=== PATIENT | female | born 1970 | race Caucasian/White ===

== ENCOUNTER → 2016-04-15 | Outpatient (CLI) | payer BC ==
--- OUTSIDE RECORDS SUMMARY | 2016-04-15 15:32 | XMS REPORT | Continuity of Care Document ---
Author Author [facility] Organization [facility] Address Unknown Phone Unavailable Allergies Active Description Code Type Severity Reaction Onset Reported/Identified Relationship to Patient Clinical Status Yes NKANo Known Allergies NKA Miscellaneous Allergy Unknown N/ A 08/09/2005 Medications Problems Date Dx Coded Attending Type Code Diagnosis Diagnosed By 02/27/2015 Ot V76.12 02/27/2015 FRAN OLIVAP Ot V76.12 02/27/2015 FRAN OLIVAP Ot V76.12 03/12/2015 FRAN OLIVAP Ot Z12.31 11/20/2015 Ot V76.12 OTH SCREEN MAMMO-MALIGN NEOPLASM OF YUMIKO 11/20/2015 FRAN OLIVA HOOKER ON Ot V76.12 OTH SCREEN MAMMO-MALIGN NEOPLASM OF YUMIKO 11/20/2015 FRAN OLIVA HOOKER ON Ot V76.12 OTH SCREEN MAMMO-MALIGN NEOPLASM OF YUMIKO 11/20/2015 FRAN OLIVA Ot Z12.31 ENCNTR SCREEN MAMMOGRAM FOR MALIGNANT NE 11/21/2015 Ot V76.12 OTH SCREEN MAMMO-MALIGN NEOPLASM OF YUMIKO 11/21/2015 FRAN OLIVA HOOKER ON Ot V76.12 OTH SCREEN MAMMO-MALIGN NEOPLASM OF YUMIKO 11/21/2015 FRAN OLIVA HOOKER ON Ot V76.12 OTH SCREEN MAMMO-MALIGN NEOPLASM OF YUMIKO 11/21/2015 FRAN OLIVA HOOKER ON Ot Z12.31 ENCNTR SCREEN MAMMOGRAM FOR MALIGNANT NE 12/29/2015 Ot V76.12 OTH SCREEN MAMMO-MALIGN NEOPLASM OF YUMIKO 12/29/2015 FRAN OLIVA HOOKER ON Ot V76.12 OTH SCREEN MAMMO-MALIGN NEOPLASM OF YUMIKO 12/29/2015 FRAN OLIVA HOOKER ON Ot V76.12 OTH SCREEN MAMMO-MALIGN NEOPLASM OF YUMIKO 12/29/2015 FRAN OLIVA Ot Z12.31 ENCNTR SCREEN MAMMOGRAM FOR MALIGNANT NE Procedures Results Encounters ACCT No. Visit Date/Time Discharge Status Pt. Type Provider Facility Loc./Unit Complaint [id number] 12/03/2013 13:56:00 2013 23:59:59 CLS Outpatient FRAN OLIVA [facility] RAD SCREENING [id number] 11/03/2012 15:14:00 2012 23:59:59 CLS Outpatient FRAN OLIVA [facility] RAD SCREENING [id number] 07/04/2015 17:17:00 Document Registration [id number] 02/27/2015 15:34:00 ACT Outpatient FRAN OLIVA [facility] RAD ROUTINE MAMMO SCREENING [id number] 02/27/2015 15:33:00 Document Registration [id number] 08/05/2011 14:28:00 Document Registration
--- NOTE | 2016-04-15 19:56 | Diagnostic Imaging Report ---
Digital mammogram bilateral screening. This study was compared to the prior exams of 02/27/2015, 12/03/2013, and 11/03/2012. At this time, there are no current complaints. The current study was also evaluated with a Computer Aided Detection (CAD) system. FINDINGS: The fibroglandular tissue in both breasts is heterogeneously dense. This does limit the sensitivity of this exam. Overall, there does not appear to have been any significant change when compared to the prior study. No primary or secondary sign of malignancy is noted. The stereotactic clips in both breasts seen previously are again evident and no different. IMPRESSION: There is no radiographic evidence for malignancy. ACR BI-RADS Category 1: Negative. Result letter will be mailed to the patient. Note: At least 10% of breast cancer is not imaged by mammography. Dictated by: Dictated on workstation # [id number]
== END ==
LOC: RAD 15:29
PROVIDERS: ATTEND Family Medicine
DX: Z12.31 Encounter for screening mammogram for malignant neoplasm of breast (principal)
CPT/HCPCS: 77067

== ENCOUNTER → 2017-06-16 | Outpatient (CLI) | payer BC ==
--- NOTE | 2017-06-16 19:30 | Diagnostic Imaging Report ---
INDICATION: Routine screening. COMPARISON: Comparison is made with prior study of 04/15/2016 and 02/27/2015. TECHNIQUE: Bilateral 3D digital tomographic views were obtained with [employer] and reviewed on a [employer] workstation. In addition, CAD - computer aided detection was utilized. FINDINGS: There is an irregular density in the superior left breast posterior depth only seen on the MLO view. Additional imaging is recommended. There are benign calcifications bilaterally. There is a biopsy clip in the left breast. The axillae are unremarkable. IMPRESSION: Left breast density. Additional views including spot compression and ML views are recommended for further evaluation. ACR BI-RADS Category 0: Incomplete. (Needs additional imaging evaluation). Result letter will be mailed to the patient. Note: At least 10% of breast cancer is not imaged by mammography. Dictated by: Dictated on workstation # [id number]
== END ==
LOC: RAD 14:29
PROVIDERS: ATTEND Family Medicine
DX: Z12.31 Encounter for screening mammogram for malignant neoplasm of breast (principal)
CPT/HCPCS: 77067

== ENCOUNTER → 2017-06-27 | Outpatient (CLI) | payer BC ==
--- NOTE | 2017-06-27 12:42 | Diagnostic Imaging Report ---
PROCEDURE: US Gallbladder. TECHNIQUE: Multiple real-time grayscale images were obtained over the right upper quadrant in various projections. INDICATION: Abdominal pain. COMPARISON: There are no prior studies available for comparison. FINDINGS: The liver is prominent and more echogenic than usually seen. This does suggest fatty metamorphosis. There is no focal mass involving the liver and the biliary tree is not abnormally dilated. Spectral color flow imaging of the portal vein shows that the vein is patent and normal and that there is normal directional flow within the vein. There is no evidence for cholelithiasis or acute cholecystitis. The common bile duct was not well visualized however. The pancreas is also obscured by bowel gas. The right kidney is unremarkable. IMPRESSION: 1. There is no acute abnormality of the right upper quadrant although the pancreas, and common bile duct were not well visualized. 2. If clinical concern regarding an acute abnormality of the gallbladder persists, then a nuclear medicine hepatobiliary scan would be recommended for further study. 3. The appearance of the liver does suggest fatty metamorphosis. Dictated by: Dictated on workstation # [id number]
== END ==
LOC: RAD 07:03
PROVIDERS: ATTEND Family Medicine
DX: R10.11 Right upper quadrant pain (principal)
CPT/HCPCS: 76705

== ENCOUNTER → 2017-06-30 | Outpatient (CLI) | payer BC ==
--- NOTE | 2017-06-30 11:10 | Diagnostic Imaging Report ---
EXAM: Ultrasound of the left breast, limited. INDICATION: Abnormal mammogram FINDINGS: The screening mammogram performed on 06/16/2017 noted an irregular density in the superior aspect of the left breast posteriorly. This is only seen on the MLO view. The diagnostic mammogram performed earlier today failed to show any sign of malignancy. On this exam, there is no discrete solid or cystic mass evident. I suspect that the area in question is related to fibroglandular tissue alone. Even so, it may prove worthwhile to have a short-term (6 month) followup mammogram of the left breast for continued evaluation. IMPRESSION: There is no evidence for malignancy. Recommendations as above. ACR BI-RADS Category 3: Probably benign findings. Result letter will be mailed to the patient. Note: At least 10% of breast cancer is not imaged by mammography. Dictated by: Dictated on workstation # [id number]
--- NOTE | 2017-06-30 19:38 | Diagnostic Imaging Report ---
EXAMINATION: Diagnostic left mammogram with 3D tomosynthesis. 3D tomographic images were obtained and reviewed. The current study was also evaluated with a Computer Aided Detection (CAD) system. FINDINGS: The screening mammogram performed on 06/16/2017 noted an irregular density in the superior left breast at posterior depth. This finding was only seen on the MLO view. This finding does not seem as conspicuous on the compression view of this area in the MLO view. Furthermore, this density cannot be identified on the true lateral view. I suspect this finding is secondary to superimposition. Even so, I would recommend that ultrasound of the left breast be performed for further evaluation. IMPRESSION: There is no evidence for malignancy. Ultrasound would be recommend for further study. ACR BI-RADS Category 0: Incomplete. (Needs additional imaging evaluation). Result letter will be mailed to the patient. Note: At least 10% of breast cancer is not imaged by mammography. Dictated by: Dictated on workstation # [id number]
== END ==
LOC: RAD 09:17
PROVIDERS: ATTEND Family Medicine
DX: R92.8 Other abnormal and inconclusive findings on diagnostic imaging of breast (principal)
CPT/HCPCS: 76642

== ENCOUNTER → 2018-01-20 | Outpatient (CLI) | payer BC ==
--- NOTE | 2018-01-20 15:59 | Diagnostic Imaging Report ---
INDICATION: Breast density. Patient presents for a 6 month followup. COMPARISON: Prior mammograms from 06/16/2017 and 04/15/2016. TECHNIQUE: Unilateral left 2D and 3D diagnostic mammography was performed with CAD. FINDINGS: Scattered fibroglandular densities are noted in the left breast. A biopsy clip remains in place. The area of slightly irregular density in the superior left breast at posterior depth on the MLO view appears stable. No new abnormality is seen. There are scattered benign calcifications. No malignant appearing microcalcifications are seen. The left axilla is unremarkable. IMPRESSION: Stable left mammogram. The patient should return in 6 months for an additional followup to confirm stability. ACR BI-RADS Category 3: Probably benign findings. Result letter will be mailed to the patient. Note: At least 10% of breast cancer is not imaged by mammography. Dictated by: Dictated on workstation # [id number]
== END ==
LOC: RAD 13:21
PROVIDERS: ATTEND Family Medicine
DX: R92.2 Inconclusive mammogram (principal)

== ENCOUNTER → 2018-08-28 | Outpatient (CLI) | payer BC ==
--- NOTE | 2018-08-28 21:11 | Diagnostic Imaging Report ---
INDICATION: Six-month followup left breast density. Comparison is made with prior mammogram from 01/20/2018, 06/30/2017. 2-D and 3-D bilateral diagnostic mammography was performed with a Computer Aided Detection (CAD) system. FINDINGS: Scattered fibroglandular densities are identified bilaterally. There are benign calcifications bilaterally. Biopsy clip in the right breast is again seen. The area of density in the upper posterior left breast noted on prior mammograms not visualized today most likely represent superimposed tissue. No mass or malignant microcalcifications are seen. Axillae are unremarkable. IMPRESSION: No mammographic features suspicious for malignancy are identified. Patient may return to routine annual screening mammography. ACR BI-RADS Category 2: Benign findings. Result letter will be mailed to the patient. Note: At least 10% of breast cancer is not imaged by mammography. Dictated by: Dictated on workstation # [id number]
== END ==
LOC: RAD 14:03
PROVIDERS: ATTEND Family Medicine
DX: R92.2 Inconclusive mammogram (principal)
CPT/HCPCS: 77066

== ENCOUNTER → 2019-09-10 | Outpatient (CLI) | payer BC ==
--- NOTE | 2019-09-11 12:46 | Diagnostic Imaging Report ---
INDICATION: Routine screening. Comparison is made with prior mammograms of 09/17/18 and 06/16/2017. 2-D and 3-D bilateral screening mammography was performed with CAD. Scattered fibroglandular densities are identified bilaterally. There are benign calcifications in both breasts. Biopsy clips in both breasts are noted. A nodular density has developed in the retroareolar left breast. This is a slightly superior on the MLO view. This is fairly well-circumscribed may represent a cyst. Ultrasound is recommended for further evaluation. No other mass or malignant appearing microcalcifications are seen. Axillae are unremarkable. IMPRESSION: BI-RADS 0 Left breast density. Additional views and ultrasound are recommended. ACR BI-RADS Category 0: Incomplete. (Needs additional imaging evaluation). Result letter will be mailed to the patient. Note: At least 10% of breast cancer is not imaged by mammography. Dictated by: Dictated on workstation # [id number]
== END ==
LOC: RAD 15:48
PROVIDERS: ATTEND Family Medicine
DX: Z12.31 Encounter for screening mammogram for malignant neoplasm of breast (principal)
CPT/HCPCS: 77063; 77067

== ENCOUNTER → 2019-09-27 | Outpatient (CLI) | payer BC ==
--- NOTE | 2019-09-27 14:11 | Diagnostic Imaging Report ---
INDICATION: Left breast density. Patient presents for additional views. Correlation is made with recent screening study from 09/10/2019 as well as 08/28/2018 and 01/20/2018. Unilateral left 2-D and 3-D diagnostic mammography was performed. This includes spot compression CC and ML views as well as a 90 degree lateral view. BB was placed area of palpable abnormality in the upper outer left breast. A circumscribed nodule in the upper retroareolar left breast is again noted approximately 12:00 location. There are benign calcifications present. No abnormality at the area of palpable abnormality is seen. Left axilla is unremarkable. IMPRESSION: BI-RADS 0 Circumscribed nodule upper retroareolar left breast, likely a cyst. Further evaluation of this area with ultrasound is recommended. In addition, ultrasound evaluation of the area of palpable abnormality upper outer left breast is recommended and will be performed today. ACR BI-RADS Category 0: Incomplete. (Needs additional imaging evaluation). Result letter will be mailed to the patient. Note: At least 10% of breast cancer is not imaged by mammography. Dictated by: Dictated on workstation # [id number]
--- NOTE | 2019-09-27 15:29 | Diagnostic Imaging Report ---
INDICATION: Left breast density. CORRELATION is made with diagnostic mammogram from earlier same day and screening mammogram from 09/10/2019 as well as mammogram from 08/28/2018. Sonographic interrogation of the upper left breast as well as the area of palpable abnormality was performed. Palpable abnormality corresponds to a circumscribed slightly lobulated solid nodule at the 12:30 location of the left breast, 2 cm from the nipple. This measures 9 mm x 4 mm x 5 mm. This does show some internal vascularity. There is posterior acoustic enhancement. This may represent a fibroadenoma. This was not definitely present on prior mammograms however. No other abnormalities are seen. IMPRESSION: BI-RADS Category 4 Circumscribed nodule at the 12:30 location left breast, 2 cm from the nipple accounting for the mammographic and palpable abnormality. This has fairly benign features and may represent a fibroadenoma; however, this was not present on prior mammograms. Therefore, tissue sampling is recommended. This would be amenable to ultrasound-guided core biopsy. Dictated by: Dictated on workstation # [id number]
== END ==
LOC: RAD 12:37
PROVIDERS: ATTEND Family Medicine
DX: N63.21 Unspecified lump in the left breast, upper outer quadrant (principal)
CPT/HCPCS: 76642; 77065; G0279

== ENCOUNTER → 2019-10-19 | Outpatient (CLI) | payer BC ==
[~2019-10-19] VITALS: Ht 167.7 cm; Wt 76.4 kg
[~2019-10-19] MED LIST: LIDOCAINE 1% INJ 20 ML 20 ML VIAL INJ ONE
--- NOTE | 2019-10-19 16:12 | Diagnostic Imaging Report ---
INDICATION: Left breast nodule, status post ultrasound-guided biopsy. EXAMINATION: Unilateral left 2D, CC and ML mammography was performed post ultrasound-guided biopsy. FINDINGS: A marker clip is identified in the upper anterior left breast, status post biopsy. There is some increased density at the biopsy site consistent with hematoma. IMPRESSION: Marker clip identified in left breast, as described. Dictated on workstation # [id number]
--- NOTE | 2019-10-19 16:32 | Diagnostic Imaging Report ---
INDICATION: Left breast nodule. Patient presents for ultrasound-guided biopsy. PROCEDURE: Patient was brought to the sonographic suite and placed on table in the supine position. Ultrasound imaging of the left breast was performed to evaluate appropriate entry site. Left breast was then prepped and draped in the usual sterile fashion. A small amount of 1% lidocaine was utilized for local anesthesia. Multiple core biopsies of the circumscribed hypoechoic solid nodule 12:30 location in the left breast, 2 cm from the nipple was obtained using a 13-gauge hand held vacuum assisted mammotome device. The marker clip was then deployed. Hemostasis was obtained using manual compression. The patient tolerated the procedure well and was sent for post procedure mammogram in satisfactory condition. IMPRESSION: Successful ultrasound-guided core biopsy of the circumscribed solid nodule 12:30 location in the left breast, 2 cm from the nipple, utilizing the hand held, vacuum assisted mammotome device. Pathology results are currently pending. Dictated on workstation # [id number]
== END ==
LOC: RAD 12:17
PROVIDERS: ATTEND Family Medicine
DX: N63.21 Unspecified lump in the left breast, upper outer quadrant (principal); Z98.890 Other specified postprocedural states
CPT/HCPCS: 19083; 77065; A4648; G0279

== ENCOUNTER → 2020-08-15 | Outpatient (CLI) | payer BC ==
--- NOTE | 2020-08-15 19:10 | Diagnostic Imaging Report ---
Ribs with chest at 6:12. Indication: Injury, right-sided chest pain. A single PA view of the chest and 3 views of the right ribs were obtained. There are no prior studies available for comparison. Reportedly the patient suffered an injury to the lower thorax on the right. A marker was placed over the area of concern. The images of the ribs in this region show no evidence for displaced fracture. No other acute bony abnormalities appreciated. There is no sign of an injury to the right lung and the left lung seems clear and well aerated. The heart size is within normal limits. The mediastinum is not widened. Impression: 1. There is no evidence for an acute cardiopulmonary abnormality. 2. There is no sign of a displaced rib fracture on the right either. Dictated by: Dictated on workstation # [id number]
== END ==
LOC: RAD 17:52
PROVIDERS: ATTEND Nurse Practitioner Family
DX: S20.211A Contusion of right front wall of thorax, initial encounter (principal)
CPT/HCPCS: 71101

== ENCOUNTER → 2020-11-18 | Outpatient (CLI) | payer BC ==
--- NOTE | 2020-11-18 13:27 | Diagnostic Imaging Report ---
INDICATION: Routine screening. COMPARISON: 09/10/2019 and 08/28/2018. TECHNIQUE: 2D and 3D bilateral screening mammography was performed with CAD. FINDINGS: Scattered fibroglandular densities are identified bilaterally. A marker clip in the right breast is again noted. There are benign calcifications bilaterally. There are two marker clips in the left breast. No new mass or malignant appearing microcalcifications are seen. The axillae are unremarkable. IMPRESSION: No mammographic features suspicious for malignancy are identified. ACR BI-RADS Category 2: Benign findings. Result letter will be mailed to the patient. Note: At least 10% of breast cancer is not imaged by mammography. Dictated by: Dictated on workstation # [id number]
== END ==
LOC: RAD 10:51
PROVIDERS: ATTEND Family Medicine
DX: Z12.31 Encounter for screening mammogram for malignant neoplasm of breast (principal)
CPT/HCPCS: 77063; 77067

== ENCOUNTER → 2021-12-14 | Outpatient (CLI) | payer BC ==
--- NOTE | 2021-12-14 09:09 | Diagnostic Imaging Report ---
PROCEDURE: US Hepatic (Liver). INDICATION: Liver density. TECHNIQUE: Multiple grayscale sonographic images were obtained of the right upper quadrant of the abdomen. CORRELATION STUDY: None. FINDINGS: LIVER: Liver length is 14.2 cm. There is some generalized increased echogenicity of the liver which may reflect fatty infiltration. There is a somewhat regional area of decreased echogenicity near the ainsley hepatic region in the central aspect of the liver measuring approximately 3.4 x 2.3 x 5.2 cm. The main portal vein is patent and with normal direction of flow. GALLBLADDER: The gallbladder demonstrates no definitive shadowing gallstones, abnormal gallbladder wall thickening or pericholecystic fluid. COMMON BILE DUCT: Nondilated at 0.4 cm. AORTA/IVC: Not well visualized. PANCREAS: Visualized portions appearing unremarkable. RIGHT KIDNEY: 8.4 x 4.4 x 4.2 cm. No hydronephrosis. OTHER: No significant right upper quadrant ascites. IMPRESSION: Probable hepatic steatosis. There is a regional area of asymmetric decreased echogenicity centrally in the liver which may reflect an area of fatty sparing. Underlying mass lesion is not excluded. Consideration for hepatic protocol contrast-enhanced CT and/or MRI would be recommended for followup. Dictated by: Dictated on workstation # [id number]
== END ==
LOC: RAD 07:15
PROVIDERS: ATTEND Family Medicine
DX: K76.89 Other specified diseases of liver (principal)
CPT/HCPCS: 76705

== ENCOUNTER → 2021-12-14 | Outpatient (CLI) | payer BC ==
--- NOTE | 2021-12-14 12:15 | Diagnostic Imaging Report ---
Indication: Routine screening. Comparison is made with prior mammogram 11/18/2020 and 09/10/2019. 2-D and 3-D bilateral screening mammography was performed with CAD. CAD is utilized. The current study was also evaluated with a Computer Aided Detection (CAD) system. Scattered fibroglandular densities are identified bilaterally. Biopsy marker clips in both breasts again noted. There are benign calcifications in both breasts. No mass or malignant appearing microcalcifications are seen. Axillae are unremarkable. IMPRESSION: BI-RADS Category 2 No mammographic features suspicious for malignancy are identified. ACR BI-RADS Category 2: Benign findings. Result letter will be mailed to the patient. Note: At least 10% of breast cancer is not imaged by mammography. Dictated by: Dictated on workstation # [id number]
== END ==
LOC: RAD 07:15
PROVIDERS: ATTEND Family Medicine
DX: Z12.31 Encounter for screening mammogram for malignant neoplasm of breast (principal); K76.89 Other specified diseases of liver
CPT/HCPCS: 77063; 77067

== ENCOUNTER → 2022-01-11 | Outpatient (CLI) | payer BC ==
[~2022-01-11] MED LIST changes: +CATHETER FLUSH 10 ML SYR IV PRN; +HOLD METFORMIN - RECEIVED CONTRAST 20 ML VIAL IV SCH; +IOHEXOL 350 MG/ML 100 ML (OMNIPAQUE 350) VIAL IV ONE; -LIDOCAINE 1% INJ 20 ML 20 ML VIAL INJ ONE; +NS 100 ML (IVPB) BAG IV ONE
--- NOTE | 2022-01-11 09:02 | Diagnostic Imaging Report ---
EXAMINATION: CT abdomen and pelvis with and without intravenous contrast. TECHNIQUE: Precontrast acquisitions were acquired through the abdomen and pelvis. Multiple contiguous axial images were obtained through the abdomen and pelvis after the administration of intravenous contrast. All CT scans use one or more of the following dose optimizing techniques: automated exposure control, MA and/or KvP adjustment based on patient size and exam type or iterative reconstruction. HISTORY: Abnormal liver sonogram COMPARISON: None available. FINDINGS: Limited views of the lower thorax are unremarkable. Liver is steatotic. There are areas of increased attenuation on all series localized to the gallbladder fossa and segments two and three consistent with sparing of steatosis. There is no biliary ductal dilation. Gallbladder is normal. Pancreas is normal. Spleen is normal. Adrenal glands are normal. The kidneys are normal. There is no hydronephrosis. Urinary bladder is normal. Bowel is normal in caliber without obstruction or inflammation. No free fluid or air. No abdominal or pelvic lymphadenopathy. Aorta is normal in caliber without aneurysm. There are no suspicious osseus lesions. IMPRESSION: 1. Steatotic liver with areas of sparing of steatosis of the gallbladder fossa in segments two and three. No suspicious liver lesions. Dictated by: Dictated on workstation # [id number]
== END ==
LOC: RAD 08:15
PROVIDERS: ATTEND Family Medicine
DX: K76.0 Fatty (change of) liver, not elsewhere classified (principal); K82.8 Other specified diseases of gallbladder
CPT/HCPCS: 74178

== ENCOUNTER 2022-12-07 07:55 | Emergency (ER) | payer BC ==
[2022-12-07] MEDS ORDERED: ONDANSETRON INJECTION 4 MG/2 ML (SDV) IM ONE (08:15)
[2022-12-07] MEDS ORDERED: diphenhydrAMINE INJ 50 MG/ML VIAL IM ONE (08:15)
--- NOTE | 2022-12-07 08:18 | ED GI ---
General Chief Complaint: Abdominal/GI Problems Stated Complaint: VOMITING | NAUSEA | HEADACHE Source of Information: Patient Exam Limitations: No Limitations History of Present Illness Date Seen by Provider: Dec 07, 2022 Time Seen by Provider: 08:04 Initial Comments 52-year-old female presents to the emergency department today for nausea vomiting diarrhea. She started to feel unwell slightly on Tuesday with some mild nausea. She started vomiting in the evening and then had vomiting and diarrhea on Tuesday throughout the day. She thought she was feeling a little bit better yesterday was actually eating a little bit throughout the day but in the evening developed nausea and vomiting once again. Her diarrhea has seemingly improved this morning she is still having significant nausea. She has some heartburn type pain in her chest which she states she has relatively frequently and thinks it has been irritated more by vomiting she has had low-grade fevers per her report. Notably she did have a similar episode a couple of weeks ago. She is on sabbatical tied for weight loss and increased from 10 to 20 to 30 mg with the most recent change coming fairly recently. No known obvious sick contacts. She does complain of a diffuse dull frontal headache bilaterally as well. She thinks this is related to vomiting All other systems reviewed and negative except documented per HPI. Voice recognition software was used to help create this chart Allergies and Home Medications Allergies Coded Allergies: NEETUANo Known Allergies (Unverified Allergy, Unknown, 08/09/05) Patient Home Medication List Home Medication List Reviewed: Yes Review of Systems Review of Systems Constitutional: see HPI Past Ctequbj-Eunhjl-Syhaky Hx Patient Social History Tobacco Use?: No Use of E-Cig and/or Vaping dev: No Substance use?: No Alcohol Use?: No Physical Exam Vital Signs Vital Signs - First Documented 12/07/22 08:03 Temp 37.6 Pulse 94 Resp 18 B/P (MAP) 146/104 (118) Pulse Ox 97 O2 Delivery Room Air Capillary Refill : Height/Weight/BMI Height: '" Weight: lbs. oz. kg; 27.16 BMI Method: General Appearance: WD/WN, no apparent distress HEENT: normal ENT inspection, pharynx normal Neck: non-tender, supple, normal inspection Respiratory: chest non-tender, lungs clear, normal breath sounds, no respiratory distress, no accessory muscle use Cardiovascular: regular rate, rhythm, no murmur Gastrointestinal: normal bowel sounds, soft, tenderness (Tenderness in the epigastric region without rebound or guarding. No mass or organomegaly. No skin changes) Extremities: normal range of motion, non-tender, normal inspection, normal capillary refill Neurologic/Psychiatric: alert, oriented x 3 Skin: normal color, warm/dry Progress/Results/Core Measures Results/Orders My Orders Orders - RIYA CAMILO DO Ondansetron Injection (Ondansetron Inj (12/07/22 08:15) Diphenhydramine Injection (Diphenhydram (12/07/22 08:15) Medications Given in ED Current Medications Medications Dose Ordered Sig/Vishal Route Start Time Stop Time Status Last Admin Dose Admin Diphenhydramine HCl 50 mg ONCE ONCE IM 12/07/22 08:15 12/07/22 08:16 DC 12/07/22 08:36 50 MG Ondansetron HCl 8 mg ONCE ONCE IM 12/07/22 08:15 12/07/22 08:16 DC 12/07/22 08:39 8 MG Vital Signs/I&O 12/07/22 08:03 Temp 37.6 Pulse 94 Resp 18 B/P (MAP) 146/104 (118) Pulse Ox 97 O2 Delivery Room Air Departure Communication (Admissions) Patient is hemodynamically stable, nontoxic in appearance. Her vital signs are completely normal she has no focal exam findings that would indicate a bacterial arterial source of infection or other emergent condition at this time. She is feeling better after IM Benadryl, Zofran discharged home in stable condition with recommendations to follow-up with her doctor should her intermittent nausea and vomiting persist as it may be related to semaglutide. Impression Primary Impression: Nausea vomiting and diarrhea Disposition: 01 HOME, SELF-CARE Condition: Stable Departure-Patient Inst. Referrals: ABIGAIL MAO MD (PCP/Family) Primary Care Physician Patient Instructions: Nausea and Vomiting, Adult, Diarrhea, Adult ED Add. Discharge Instructions: You were seen in the emergency department today for nausea vomiting and diarrhea. I do think this is from GI bug versus your semaglutide that you take for weight loss if from a GI bug, it should only last about another 24 hours or so. Use the nausea medicine as prescribed as needed by dissolving it under your tongue. Increase your fluids at home by taking small sips of fluids every 15 to 20 minutes. You may use Benadryl, 50 mg every 6 hours as needed for nausea as well. This will likely help with your headache as well to the emergency department for any severe concerns. Should your symptoms continue to be intermittent and persistent I recommend you following up with your doctor to discuss cessation of semaglutide. All discharge instructions reviewed with patient and/or family. Voiced understanding. Scripts Ondansetron (Ondansetron Odt) 8 Mg Tab.rapdis 8 MG SL Q6H PRN for NAUSEA/VOMITING for 3 Days, #12 TAB Prov: RIYA CAMILO DO 12/07/22 RIYA CAMILO DO Dec 07, 2022 08:18
[2022-12-07] MEDS ORDERED: ONDA8TAB13 SL ×2 (09:12→09:19)
[2022-12-07 09:47] VITALS: BP 121/79
== END 2022-12-07 09:48 | disposition home or self-care (01) ==
LOC: EDUNIT# 07:55 → ER 07:57
DX: R11.2 Nausea with vomiting, unspecified (principal); R19.7 Diarrhea, unspecified
CPT/HCPCS: 96372; 99284

== ENCOUNTER → 2022-12-27 | Outpatient (CLI) | payer BC ==
[~2022-12-27] MED LIST changes: -CATHETER FLUSH 10 ML SYR IV PRN; -HOLD METFORMIN - RECEIVED CONTRAST 20 ML VIAL IV SCH; -IOHEXOL 350 MG/ML 100 ML (OMNIPAQUE 350) VIAL IV ONE; -NS 100 ML (IVPB) BAG IV ONE; +ONDA8TAB13 SL
--- NOTE | 2022-12-27 16:41 | Diagnostic Imaging Report ---
INDICATION: Routine screening. COMPARISON: 12/14/2021 and 11/18/2020. TECHNIQUE: 2D and 3D bilateral screening mammography was performed with CAD. FINDINGS: Scattered fibroglandular densities are identified bilaterally. Bilateral breast biopsy marker clips and bilateral benign calcifications are again noted. No mass or malignant-appearing microcalcifications are identified. The axillae are unremarkable. IMPRESSION: No mammographic features suspicious for malignancy are identified. ACR BI-RADS Category 2: Benign findings. Result letter will be mailed to the patient. Note: At least 10% of breast cancer is not imaged by mammography. Dictated by: Dictated on workstation # [id number]
== END ==
LOC: RAD 15:30
PROVIDERS: ATTEND Family Medicine
DX: Z12.31 Encounter for screening mammogram for malignant neoplasm of breast (principal)
CPT/HCPCS: 77063; 77067